=== PATIENT | male | born 1975 | race Caucasian/White ===

== ENCOUNTER 2016-04-20 08:54 | Day surgery (SDC) | payer MEDICAID ==
[2016-04-20] MEDS ORDERED: PROPOFOL 10 MG/ML VIAL IV ONE (15:22)
[2016-04-20] MEDS ORDERED: MIDAZOLAM HCL 2MG/2ML VIAL IV ONE (15:22)
[2016-04-20] MEDS ORDERED: LIDOCAINE 2% MDV (20MG/ML) 20ML VIAL IV ONE (15:22)
--- NOTE | 2016-04-23 13:01 | Operative Note ---
DATE OF SURGERY: 04/20/2016 REFERRING PHYSICIAN: Dane Boone D.O. PROCEDURE: COLONOSCOPY of the cecum with multiple biopsies. Surgeon: Buck Franklin D.O. Indication: Remote history of possible ulcerative colitis although the episode of the colitis was acute and he has had no subsequent episode since that time. He only takes 800 mg of Asacol daily and feels though this controls his stools. He claims that if he is late in taking his pill he notices some cramping and diarrhea. Colonoscopy is repeated at this time for surveillance although again I am not convinced he suffers with chronic ulcerative colitis. Intravenous sedation was administered by the Department of Anesthesiology and included Diprivan titrated to effect. PROCEDURE: Following informed consent from this alert individual, including a discussion of the risks and benefits of the procedure and an opportunity for the patient to ask questions, the patient was in the left lateral decubitus position. A digital rectal examination was performed. No abnormalities were detected. Following this, the Olympus PCF-180 video colonoscope was inserted into the rectum without resistance. The rectal mucosa had a normal appearance, with normal folds and distensibility. The colonoscope was advanced up through the bowel to the level of the cecum without much difficulty. Throughout the bowel the mucosa appeared normal, folds were normal, the bowel was fairly distensible. The cecum was defined by noting the appendiceal orifice and ileocecal valve. The colon preparation was good. From the base of the cecum the colonoscope was then withdrawn back through the bowel reexamining the mucosa upon withdrawal. Again the right colon and transverse colon endoscopically normal. Descending colon, sigmoid colon likewise were free from changes. Random biopsies were taken from throughout the right and left colon upon withdrawal. The colonoscope was then withdrawn back into the rectum where retroflexion accomplished following air insufflation revealed small internal hemorrhoids. The endoscope was straightened and removed. The patient tolerated the procedure well and was returned to the Recovery Area in stable condition. IMPRESSION: Small internal hemorrhoids otherwise unremarkable colonoscopy of the cecum. RECOMMENDATIONS: Further recommendations may be forthcoming pending results of biopsy obtained today. Follow up will be with Dr. Vitor Boone D.O. Buck Franklin, CC: Dane Boone D.O. [facility]ITAL[facility]ann
== END 2016-04-20 11:16 | disposition home or self-care (01) ==
LOC: HOP 08:54
PROVIDERS: ATTEND Internal Medicine Gastroenterology
DX: Z09 Encounter for follow-up examination after completed treatment for conditions other than malignant neoplasm (principal); K64.8 Other hemorrhoids